=== PATIENT | female | born 1960 | race Caucasian/White ===

== ENCOUNTER 2018-10-11 18:36 | Inpatient (IN) | payer OTHER ==
[~2018-10-11] VITALS: Ht 160 cm; Wt 101.6 kg
[2018-10-11] MEDS ORDERED: LEVO25TA9 PO (18:47)
[2018-10-11] MEDS ORDERED: CARV3 PO (18:47)
[2018-10-11] MEDS ORDERED: ASPI-1182 PO (18:47)
[2018-10-11] MEDS ORDERED: INSLAN SQ (18:47)
[2018-10-11 18:55] LABS: GLUCOSE,POINT OF CARE 213 MG/DL (70-110)
[2018-10-11 19:52] LABS: BASOPHILS % (AUTO) 0.4 % (0.0-2.0); EOSINOPHILS % (AUTO) 2.2 % (1.0-6.0); HEMATOCRIT 28.8 % (36-46); HEMOGLOBIN 8.7 g/dL (12.0-16.0); LYMPHOCYTES # (AUTO) 1.6 K/uL (1.0-4.8); MEAN CORPUSCULAR HEMOGLOBIN 22.2 pg (26.0-34.0); MEAN CORPUSCULAR HGB CONC 30.3 G/dL (31.0-37.0); MEAN CORPUSCULAR VOLUME 73 fL (80-100); MONOCYTES # (AUTO) 0.6 K/uL (0.1-1.0); MONOCYTES % (AUTO) 7.7 % (2.0-9.0); NEUTROPHILS # (AUTO) 5.6 K/uL (1.8-7.7); NEUTROPHILS % (AUTO) 69.7 % (40.0-70.0); PLATELET COUNT (AUTO) 228 K/uL (150-450); RED BLOOD CELL COUNT(AUTO) 3.93 MIL/uL (4.00-5.20); RED CELL DISTRIBUTION WIDTH 19.4 % (11.5-14.5)
[2018-10-11 20:13] LABS: CALCIUM, TOTAL 8.5 mg/dL (8.8-10.5); CREATININE 1.03 mg/dL (0.60-1.30); POTASSIUM 4.2 mmol/L (3.5-5.1)
[2018-10-11 20:16] LABS: INR 1.1 (0.9-1.1); PROTHROMBIN TIME 11.7 SEC (9.4-11.6)
[2018-10-11 20:28] LABS: ALBUMIN 3.3 g/dL (3.4-5.0); BILIRUBIN,TOTAL 0.5 mg/dL (0.1-1.0); TOTAL PROTEIN, SERUM 6.9 g/dL (6.4-8.2)
[2018-10-11] MEDS ORDERED: ALBUTEROL SULFATE 5 MG/ML 20 ML NEB SOLN [BULK] NEB ONE (20:30)
[2018-10-11 20:54] LABS: D-DIMER 4.3 mg/L FEU (0.00-0.50)
[2018-10-11] MEDS ORDERED: FUROSEMIDE 40 MG/4 ML VIAL IVP ONE (21:30)
[2018-10-11] MEDS ORDERED: SODIUM CHLORIDE 0.9% 100 ML ONE (21:33)
[2018-10-11] MEDS ORDERED: IOVERSOL 350 MG/ML 100 ML VIAL ONE (21:33)
[2018-10-11] MEDS ORDERED: 0.9% SODIUM CHLORIDE 5 ML NEB SOLUTION NEB ONE (21:58)
[2018-10-11] MEDS ORDERED: 0.9% SODIUM CHLORIDE 10 ML SYRINGE IVP PRN (22:15)
[2018-10-11] MEDS ORDERED: ONDANSETRON HCL 4 MG/2 ML VIAL IVP PRN ×2 (22:15→23:45)
[2018-10-11] MEDS ORDERED: ACETAMINOPHEN 325 MG TABLET PO PRN (22:15)
[2018-10-11] MEDS ORDERED: IOVERSOL 350 MG/ML 50 ML VIAL ONE (23:20)
[2018-10-11] MEDS ORDERED: BISACODYL 10 MG RECTAL RECTAL SUPPOSITORY PR PRN (23:45)
[2018-10-11] MEDS ORDERED: MAGNESIUM HYDROXIDE SUSPENSION 30 ML UDCUP PO PRN (23:45)
[2018-10-11] MEDS ORDERED: MORPHINE SULFATE 2 MG/ML SYRINGE IVP PRN (23:45)
[2018-10-11] MEDS ORDERED: OxyCODONE HCL/ACETAMINOPHEN 5-325 MG TABLET PO PRN (23:45)
[2018-10-11] MEDS ORDERED: ZOLPIDEM TARTRATE 5 MG TABLET PO PRN (23:45)
[2018-10-11] MEDS ORDERED: DEXTROSE 50%-WATER 25 GM/50 ML SYRINGE IVP PRN (23:45)
[2018-10-12 00:35] LABS: APPEARANCE,URINE CLEAR (CLEAR); BILIRUBIN,URINE NEGATIVE (NEGATIVE); GLUCOSE, URINE (UA) NEGATIVE (NEGATIVE); KETONES,URINE NEGATIVE (NEGATIVE); LEUKOCYTE ESTERASE ,URINE NEGATIVE (NEGATIVE); NITRATE,URINE NEGATIVE (NEGATIVE); OCCULT BLOOD,URINE NEGATIVE (NEGATIVE); PROTEIN,URINE NEGATIVE (NEGATIVE); UROBILINOGEN,URINE 0.2 mg/dL (<=1.0)
[2018-10-12 01:16] VITALS: BP 136/63
[2018-10-12] MEDS ORDERED: -PHARMACY VACCINE NOTE- MISC ONE (04:45)
[2018-10-12 05:10] LABS: GLUCOMETER DEV NAME(LOC) 5N.1; GLUCOSE,POINT OF CARE 109 MG/DL (70-110)
[2018-10-12 05:50] LABS: BASOPHILS % (AUTO) 0.3 % (0.0-2.0); EOSINOPHILS % (AUTO) 1.7 % (1.0-6.0); HEMATOCRIT 29.7 % (36-46); HEMOGLOBIN 8.7 g/dL (12.0-16.0); LYMPHOCYTES # (AUTO) 2.5 K/uL (1.0-4.8); LYMPHOCYTES % (AUTO) 31.1 % (22.0-44.0); MEAN CORPUSCULAR HEMOGLOBIN 21.9 pg (26.0-34.0); MEAN CORPUSCULAR HGB CONC 29.4 G/dL (31.0-37.0); MEAN CORPUSCULAR VOLUME 75 fL (80-100); MONOCYTES # (AUTO) 0.7 K/uL (0.1-1.0); NEUTROPHILS # (AUTO) 4.8 K/uL (1.8-7.7); NEUTROPHILS % (AUTO) 58.9 % (40.0-70.0); PLATELET COUNT (AUTO) 218 K/uL (150-450); RED BLOOD CELL COUNT(AUTO) 3.98 MIL/uL (4.00-5.20); RED CELL DISTRIBUTION WIDTH 19.9 % (11.5-14.5)
[2018-10-12 05:56] VITALS: BP 149/99
[2018-10-12] MEDS: LEVOTHYROXINE SODIUM 25 MCG TABLET PO SCH (06:06)
[2018-10-12 06:51] LABS: ALBUMIN 3.3 g/dL (3.4-5.0); BILIRUBIN,TOTAL 0.6 mg/dL (0.1-1.0); CALCIUM, TOTAL 9.1 mg/dL (8.8-10.5); CHOL/HDL RATIO 4.6 (3.9-5.7); CREATININE 1.14 mg/dL (0.60-1.30); MAGNESIUM 1.9 mg/dL (1.80-2.40); PHOSPHORUS 3.2 mg/dL (2.5-4.9); POTASSIUM 4.5 mmol/L (3.5-5.1); THYROID STIMULATING HORMONE 7.28 uIU/mL (0.36-3.74); TOTAL PROTEIN, SERUM 6.8 g/dL (6.4-8.2)
[2018-10-12 07:15] VITALS: BP 148/92
[2018-10-12] MEDS: IPRATROPIUM BROMIDE 0.5 MG/2.5 ML NEB SOLUTION NEB PRN ×2 (07:36→22:08)
[2018-10-12] MEDS: ALBUTEROL SULFATE 2.5 MG/0.5 ML NEB SOLUTION NEB PRN ×2 (07:36→22:08)
[2018-10-12 07:37] LABS: HEMOGLOBIN A1C 9.7 % (4.5-6.2)
[2018-10-12] MEDS: CARVEDILOL 3.125 MG TABLET PO SCH ×2 (09:31→21:02)
[2018-10-12] MEDS: FAMOTIDINE 20 MG TABLET PO SCH (09:31)
[2018-10-12] MEDS: ASPIRIN 81 MG EC TABLET PO SCH (09:31)
[2018-10-12] MEDS: FUROSEMIDE 40 MG/4 ML VIAL IVP SCH (09:31)
[2018-10-12] MEDS: HEPARIN SODIUM,PORCINE 5,000 UNITS/ML VIAL SQ SCH ×2 (09:31→21:03)
[2018-10-12 11:09] VITALS: BP 148/80
[2018-10-12] MEDS: INSULIN LISPRO 100 UNITS/ML SQ PRN ×3 (12:02→21:10)
[2018-10-12 12:20] LABS: GLUCOMETER DEV NAME(LOC) 5N.2; GLUCOSE,POINT OF CARE 222 MG/DL (70-110)
[2018-10-12 15:02] VITALS: BP 147/80
[2018-10-12 19:06] LABS: GLUCOMETER DEV NAME(LOC) 5N.2; GLUCOSE,POINT OF CARE 173 MG/DL (70-110)
[2018-10-12 20:45] VITALS: BP 148/101
[2018-10-12] MEDS: INSULIN GLARGINE,HUM.REC.ANLOG 100 UNITS/ML SQ SCH (21:10)
[2018-10-13 01:18] VITALS: BP 136/86
[2018-10-13 05:03] VITALS: BP 131/82
[2018-10-13 05:55] LABS: GLUCOMETER DEV NAME(LOC) 5S.1; GLUCOSE,POINT OF CARE 178 MG/DL (70-110)
[2018-10-13] MEDS: LEVOTHYROXINE SODIUM 25 MCG TABLET PO SCH (05:58)
[2018-10-13] MEDS: ACETAMINOPHEN 325 MG TABLET PO PRN (06:02)
[2018-10-13 06:21] LABS: CALCIUM, TOTAL 8.7 mg/dL (8.8-10.5); CREATININE 0.97 mg/dL (0.60-1.30)
[2018-10-13 07:20] LABS: GLUCOMETER DEV NAME(LOC) 5N.1; GLUCOSE,POINT OF CARE 140 MG/DL (70-110)
[2018-10-13] MEDS: FAMOTIDINE 20 MG TABLET PO SCH (08:20)
[2018-10-13] MEDS: HEPARIN SODIUM,PORCINE 5,000 UNITS/ML VIAL SQ SCH ×2 (08:20→20:39)
[2018-10-13] MEDS: FUROSEMIDE 40 MG/4 ML VIAL IVP SCH (08:20)
[2018-10-13] MEDS: CARVEDILOL 3.125 MG TABLET PO SCH ×2 (08:21→20:39)
[2018-10-13] MEDS: ASPIRIN 81 MG EC TABLET PO SCH (08:21)
[2018-10-13 08:23] VITALS: BP 146/80
[2018-10-13] MEDS: INSULIN LISPRO 100 UNITS/ML SQ PRN ×2 (11:51→20:46)
[2018-10-13 12:05] VITALS: BP 145/95
[2018-10-13 16:21] VITALS: BP 165/71
[2018-10-13 17:20] LABS: GLUCOMETER DEV NAME(LOC) 5S.1; GLUCOSE,POINT OF CARE 206 MG/DL (70-110)
[2018-10-13 19:24] LABS: GLUCOMETER DEV NAME(LOC) 5N.1; GLUCOSE,POINT OF CARE 139 MG/DL (70-110)
[2018-10-13 19:50] VITALS: BP 154/83
[2018-10-13] MEDS: INSULIN GLARGINE,HUM.REC.ANLOG 100 UNITS/ML SQ SCH (20:45)
[2018-10-14] VITALS (8 sets, daily range): BP systolic 112–157; BP diastolic 58–96
[2018-10-14 04:14] LABS: GLUCOMETER DEV NAME(LOC) 5N.2; GLUCOSE,POINT OF CARE 221 MG/DL (70-110)
[2018-10-14] MEDS: LEVOTHYROXINE SODIUM 25 MCG TABLET PO SCH (06:03)
[2018-10-14] MEDS: HEPARIN SODIUM,PORCINE 5,000 UNITS/ML VIAL SQ SCH ×2 (08:14→21:04)
[2018-10-14] MEDS: ASPIRIN 81 MG EC TABLET PO SCH (08:14)
[2018-10-14] MEDS: FUROSEMIDE 40 MG/4 ML VIAL IVP SCH (08:14)
[2018-10-14] MEDS: FAMOTIDINE 20 MG TABLET PO SCH (08:14)
[2018-10-14] MEDS: CARVEDILOL 3.125 MG TABLET PO SCH ×2 (08:15→21:03)
[2018-10-14] MEDS: ACETAMINOPHEN 325 MG TABLET PO PRN (08:28)
[2018-10-14 10:14] LABS: CALCIUM, TOTAL 8.5 mg/dL (8.8-10.5); CREATININE 0.98 mg/dL (0.60-1.30); MAGNESIUM 1.8 mg/dL (1.80-2.40); POTASSIUM 3.9 mmol/L (3.5-5.1)
[2018-10-14] MEDS: INSULIN LISPRO 100 UNITS/ML SQ PRN (11:52)
[2018-10-14] MEDS: LISINOPRIL 5 MG TABLET PO SCH (17:16)
[2018-10-14 20:44] LABS: GLUCOMETER DEV NAME(LOC) 5N.2; GLUCOSE,POINT OF CARE 81 MG/DL (70-110)
[2018-10-14] MEDS: INSULIN GLARGINE,HUM.REC.ANLOG 100 UNITS/ML SQ SCH (21:02)
[2018-10-15 05:10] VITALS: BP 145/83
[2018-10-15 05:11] VITALS: BP 157/97
[2018-10-15 05:12] VITALS: BP 138/75
[2018-10-15] MEDS: LEVOTHYROXINE SODIUM 25 MCG TABLET PO SCH (05:32)
[2018-10-15 05:45] LABS: GLUCOMETER DEV NAME(LOC) 5N.1; GLUCOSE,POINT OF CARE 185 MG/DL (70-110)
[2018-10-15 05:54] LABS: GLUCOMETER DEV NAME(LOC) 5N.2; GLUCOSE,POINT OF CARE 115 MG/DL (70-110)
[2018-10-15] MEDS: ACETAMINOPHEN 325 MG TABLET PO PRN (07:25)
[2018-10-15 08:10] VITALS: BP 142/90
[2018-10-15] MEDS: HEPARIN SODIUM,PORCINE 5,000 UNITS/ML VIAL SQ SCH (08:13)
[2018-10-15] MEDS: LISINOPRIL 5 MG TABLET PO SCH (08:13)
[2018-10-15] MEDS: ASPIRIN 81 MG EC TABLET PO SCH (08:13)
[2018-10-15] MEDS: CARVEDILOL 3.125 MG TABLET PO SCH (08:13)
[2018-10-15] MEDS: FAMOTIDINE 20 MG TABLET PO SCH (08:13)
[2018-10-15] MEDS ORDERED: FUROSEMIDE 20 MG TABLET PO SCH (09:00)
[2018-10-15] MEDS: INSULIN LISPRO 100 UNITS/ML SQ PRN (11:35)
[2018-10-15 11:59] LABS: GLUCOMETER DEV NAME(LOC) 5N.2; GLUCOSE,POINT OF CARE 142 MG/DL (70-110)
[2018-10-15 12:08] VITALS: BP 118/70
[2018-10-15 15:34] VITALS: BP 154/96
[2018-10-15] MEDS ORDERED: FURO20 PO (15:51)
[2018-10-15] MEDS ORDERED: LISI-660 PO (15:52)
[2018-10-15] MEDS ORDERED: KDUR10 PO (15:53)
[2018-10-15 19:39] LABS: GLUCOMETER DEV NAME(LOC) 5N.2; GLUCOSE,POINT OF CARE 121 MG/DL (70-110)
[2018-10-16 04:49] LABS: GLUCOMETER DEV NAME(LOC) 5S.1; GLUCOSE,POINT OF CARE 186 MG/DL (70-110)
[2018-10-16 04:49] LABS: GLUCOMETER DEV NAME(LOC) 5S.1; GLUCOSE,POINT OF CARE 118 MG/DL (70-110)
== END 2018-10-15 21:00 | disposition home or self-care (01) | DRG 194 ==
LOC: EMS 18:37 → 5S 22:11 → 5N 10-12 07:08
PROVIDERS: ADMIT Internal Medicine; ATTEND Internal Medicine
DX: I11.0 Hypertensive heart disease with heart failure (principal); E11.65 Type 2 diabetes mellitus with hyperglycemia; I42.9 Cardiomyopathy, unspecified; E66.9 Obesity, unspecified; E03.9 Hypothyroidism, unspecified; D64.9 Anemia, unspecified; E78.5 Hyperlipidemia, unspecified; I50.23 Acute on chronic systolic (congestive) heart failure; Z79.899 Other long term (current) drug therapy; Z68.39 Body mass index [BMI] 39.0-39.9, adult
CPT/HCPCS: 71275; 83036; 83540; 83550; 83735; 84100; 84443; 85379; 93005; 93306; 94640; 96374; G0378; J1644; J1815; J1940; J7050